=== PATIENT | female | born 1980 | race Caucasian/White ===

== ENCOUNTER 2017-01-29 22:12 | Emergency (ER) | payer OTHER ==
[~2017-01-29] VITALS: Ht 165.1 cm; Wt 74.8 kg
[~2017-01-29 22:12] MED LIST: CEPH500C16 PO; FERR324T20 PO; IBUP-974 PO
[2017-01-29 23:05] VITALS: BP 135/88
--- NOTE | 2017-01-29 23:49 | NUR ---
PATIENT TO OF 1
--- NOTE | 2017-01-29 23:56 | NUR ---
37Y/F PATIENT PRESENTS TO ED WITH C/O TOOTHACHE . PT STATES STATES HAVING TOOTHACHE X 2 WKS, WENT TO SEE AT ED, GOT ATB, THEN WENT TO SEE DENTIST YESTERDAY, HAVE APPOINTMENT ON 02/05/17, TODAY PAIN INCREASES . DENIES N/V/D, RT. FACE SWELLING; SKIN IS PINK/WARM/DRY; AAOX4 WITH EVEN AND STEADY GAIT; LUNGS CLEAR BL; HR EVEN AND REGULAR; PT DENIES ANY FEVER, CP, SOB, OR COUGH AT THIS TIME; PATIENT STATES PAIN OF 10/10 AT THIS TIME; VSS; ER MD MADE AWARE OF PT STATUS.
--- NOTE | 2017-01-29 23:58 | NUR ---
Patient being evaluated by physician.
[2017-01-30] MEDS ORDERED: LIDOCAINE/EPI 1% 1:100000 20 ML VIAL INJ ONE (00:15)
--- NOTE | 2017-01-30 00:40 | NUR ---
DR. LU PERFORMS I AND D AT BEDSIDE, PT. TOLERATES WELL.
[2017-01-30 01:05] VITALS: BP 128/79
--- NOTE | 2017-01-30 01:05 | NUR ---
Patient discharged with v/s stable. Written and verbal after care instructions given and explained. Patient alert, oriented and verbalized understanding of instructions. Ambulatory with steady gait. All questions addressed prior to discharge. ID band removed. Patient advised to follow up with PMD. Rx of NORCO, CLINDAMYCIN AND NAPROSYN given. Patient educated on indication of medication including possible reaction and side effects. Opportunity to ask questions provided and answered.
== END 2017-01-30 01:05 | disposition home or self-care (01) ==
LOC: MED 22:12
DX: K04.7 Periapical abscess without sinus (principal)
CPT/HCPCS: 41800; 99284; J2001; 99283

== ENCOUNTER 2018-09-19 14:24 | Inpatient (IN) | payer OTHER ==
[~2018-09-19] VITALS: Ht 165.1 cm; Wt 81.6 kg
[2018-09-19 14:45] VITALS: BP 118/81
--- NOTE | 2018-09-19 14:52 | NUR ---
PATIENT AMB. TO BED #11 WITH NURSE
[2018-09-19] MEDS ORDERED: NACL 0.9% 1,000 ML IV ONE (15:10)
[2018-09-19 15:34] LABS: BASOPHILS % (AUTO) 0.5 % (0.0-2.0); EOSINOPHILS # (AUTO) 0.1 K/uL (0-0.4); EOSINOPHILS % (AUTO) 2.4 % (0.0-4.0); HEMATOCRIT 29.5 % (36-48); HEMOGLOBIN 9.1 g/dL (12.0-16.0); LYMPHOCYTES % (AUTO) 19.3 % (20.5-51.1); MEAN CORPUSCULAR HEMOGLOBIN 22 pg (27-31); MEAN CORPUSCULAR HGB CONC 31 g/dL (33-37); MEAN CORPUSCULAR VOLUME 71.5 fL (80-94); MONOCYTES # (AUTO) 0.4 K/uL (0.8-1.0); MONOCYTES % (AUTO) 7.9 % (1.7-9.3); NEUTROPHILS # (AUTO) 3.8 K/uL (1.8-7.7); NEUTROPHILS % (AUTO) 69.9 % (42.2-75.2); PLATELET COUNT (AUTO) 209 K/uL (140-450); RED BLOOD CELL COUNT(AUTO) 4.13 MIL/uL (4.20-5.40); RED CELL DISTRIBUTION WIDTH 16.9 % (11.6-13.7); WHITE BLOOD COUNT (AUTO) 5.4 K/uL (4.8-10.8)
--- NOTE | 2018-09-19 15:39 | NUR ---
PT C/O BLOOD CLOTS AND VAGINAL BLEEDING POST 15 DAYS AT A [facility] [place] AT 13 WKS. GEST. AT THAT TIME. DENIES ABD. PAIN/CRAMPING. NOW PATIENT 15 WKS. GEST. . PER PATIENT BLEEDING WITH CLOTS. DENIES HX, DENIES PAIN.
[2018-09-19 15:41] LABS: ANION GAP 11.1 (8-16); CARBON DIOXIDE 27.9 mmol/L (21-32); CREATININE 0.7 mg/dL (0.6-1.3)
[2018-09-19 15:46] LABS: ALBUMIN 3.4 g/dL (3.4-5.0); TOTAL BILIRUBIN 0.2 mg/dL (0.0-1.0)
[2018-09-19 15:51] LABS: PROTHROMBIN TIME 10.3 secs (10.8-13.4)
--- NOTE | 2018-09-19 18:11 | NUR ---
PT, REPORTS LIGHT BLEEDING AND NO CLOTS.
--- NOTE | 2018-09-19 18:15 | NUR ---
PT TAKEN TO US VIA WHEELCHAIR
--- NOTE | 2018-09-19 18:36 | NUR ---
Jose johnston in [facility] - 09/19/18 at 1842 by [facility] PT RETURNED FROM US
--- NOTE | 2018-09-19 18:42 | NUR ---
PT RETURNED FROM US
--- NOTE | 2018-09-19 19:33 | NUR ---
PT LAYING IN BED, VSS, WILL CONTINUE TO MONITOR.
--- NOTE | 2018-09-19 21:19 | NUR ---
LAB AT BEDSIDE
--- NOTE | 2018-09-19 21:26 | NUR ---
PT LAYING IN BED, VSS, WILL CONTINUE TO MONITOR.
[2018-09-19] MEDS ORDERED: NACL 0.9% 1,000 ML IV SCH (23:29)
[2018-09-19] MEDS ORDERED: ONDANSETRON 4 MG/2 ML VIAL IM/IVP PRN (23:30)
[2018-09-19] MEDS ORDERED: MORPHINE SULFATE 2 MG/ML SYR IVP PRN (23:30)
[2018-09-19] MEDS ORDERED: DOCUSATE SODIUM 100 MG GELCAP PO PRN (23:30)
[2018-09-19] MEDS ORDERED: HYDROcodone/APAP 5/325 MG 1 TAB TAB PO PRN (23:30)
[2018-09-19] MEDS ORDERED: ACETAMINOPHEN 325 MG TAB PO PRN (23:30)
--- NOTE | 2018-09-20 | NUR ---
PT LAYING IN BED , VSS, BLEEDING CONTROLLED, NO CLOT PRODUCTION NOTED IN PAD.
[2018-09-20 00:03] VITALS: BP 114/63
--- NOTE | 2018-09-20 00:03 | NUR ---
RECEIVED REPORT FROM ER NURSE AT BEDSIDE FOR CONTINUITY OF CARE. PT AAOX4. PT IV NOTED RIGHT HAND 22G SALINE LOCK. NO SOB NO S/S OF DISTRESS ON RA. PT ORIENTED TO ROOM. PT AMBULATORY. BED LOWERED CALL LIGHT WITHIN REACH. WILL CONTINUE TO MONITOR.
--- NOTE | 2018-09-20 00:10 | NUR ---
Patient will be admitted to care of DR RAPP. Admited to [facility]. Will go to [id number]. Belongings list completed. Report to ERROL KENYON.
[2018-09-20] MEDS ORDERED: cefTRIAXone 1,000 MG VIAL ONE (01:00)
[2018-09-20 02:09] LABS: CHOL/HDL RATIO 1.8 (1-4.5); PHOSPHORUS 3.3 mg/dL (2.5-4.9); THYROID STIMULATING HORMONE 0.96 uIU/mL (0.34-3.74)
--- NOTE | 2018-09-20 04:12 | NUR ---
PT SLEEPING. NO SOB NO S/S OF DISTRESS ON RA. WILL CONTINUE TO MONITOR.
--- NOTE | 2018-09-20 07:05 | NUR ---
ENDORSED REPORT TO DAYSHIFT NURSE AT BEDSIDE FOR CONTINUITY OF CARE.
--- NOTE | 2018-09-20 07:06 | NUR ---
RECEIVED REPORT FROM PM NURSE AT BEDSIDE. PT LYING ON HER BED COMFORTABLY. PT HAS RT FA 22 G IV ACCESS, NS INFUSING AT 60 ML/HR. PT AWAKE WHILE RECORDING VS, INFORMED HER THAT URINE SAMPLE NEEDS TO BE COLLECTED, PLACED CUP AT PTS BEDSIDE. PT IS A0X4, DUE FOR [facility] CONSULT. DR RAPP MADE ROUND ALREADY. DENIES PAIN. INFORMED HER TO USE CALL LIGHT FOR ANY HELP. WILL CONTINUE TO MONITOR PT.
[2018-09-20 08:03] VITALS: BP 109/69
[2018-09-20] MEDS ORDERED: AZITHROMYCIN 250 MG TAB PO SCH (08:30)
[2018-09-20] MEDS ORDERED: ASCORBIC ACID 500 MG TAB PO SCH (09:00)
[2018-09-20] MEDS ORDERED: medroxyPROGESTERone 10 MG TAB PO SCH (09:00)
[2018-09-20] MEDS ORDERED: FERROUS SULFATE 325 MG TABEC PO SCH (09:00)
[2018-09-20] MEDS ORDERED: FERROUS SULFATE 324 MG PO SCH (09:00)
[2018-09-20 09:02] LABS: BASOPHILS % (AUTO) 0.3 % (0.0-2.0); EOSINOPHILS # (AUTO) 0.1 K/uL (0-0.4); EOSINOPHILS % (AUTO) 2.9 % (0.0-4.0); HEMATOCRIT 29.2 % (36-48); HEMOGLOBIN 8.9 g/dL (12.0-16.0); LYMPHOCYTES # (AUTO) 0.8 K/uL (2.5-16.5); LYMPHOCYTES % (AUTO) 18.8 % (20.5-51.1); MEAN CORPUSCULAR HEMOGLOBIN 22 pg (27-31); MEAN CORPUSCULAR HGB CONC 30 g/dL (33-37); MEAN CORPUSCULAR VOLUME 72.9 fL (80-94); MONOCYTES # (AUTO) 0.4 K/uL (0.8-1.0); MONOCYTES % (AUTO) 8.5 % (1.7-9.3); NEUTROPHILS # (AUTO) 3.1 K/uL (1.8-7.7); NEUTROPHILS % (AUTO) 69.5 % (42.2-75.2); PLATELET COUNT (AUTO) 204 K/uL (140-450); RED BLOOD CELL COUNT(AUTO) 4.01 MIL/uL (4.20-5.40); WHITE BLOOD COUNT (AUTO) 4.4 K/uL (4.8-10.8)
[2018-09-20 09:25] LABS: ANION GAP 10.6 (8-16); CARBON DIOXIDE 25.5 mmol/L (21-32); CREATININE 0.6 mg/dL (0.6-1.3); POTASSIUM 4.1 mmol/L (3.5-5.1)
--- NOTE | 2018-09-20 09:30 | NUR ---
ADMINISTERED MEDS TO PT. TOLERATED WELL. PT ON NPO AT THIS TIME. INFORMED PT THAT URINE NEEDS TO BE COLLECTED, EXPLAINED HER TO URINATE FIRST AND THE WAIT FIR A WHILE AND PEE IN CUP. VERBALIZED UNDERSTANDING. PT STATES THAT SHE I SNOT BLEEDING HEAVILY AT THIS TIME. NO SIGN OF DISTRESS NOTED. INFORMED HER TO USE CALL LIGHT FOR ANY HELP. WILL CONTINUE TO MONITOR PT.
--- NOTE | 2018-09-20 10:20 | NUR ---
PATIENT HAS BEEN SCREENED AND CATEGORIZED LOW NUTRITION RISK. PATIENT WILL BE SEEN WITHIN 7 DAYS OF ADMISSION. 09/26/[address]
--- NOTE | 2018-09-20 10:52 | NUR ---
CHECKED ON PT. SITTING ON HER BED, COMFORTABLE AND CALM. PT DIET HAS BEEN CHANGED TO REGULAR. OFFERED HER JUICE AND SOME CRACKERS. CALLED [employer] TO SEND SOME SANDWICH FOR PT . LEFT VOICE MESSAGE. WILL CONTINUE TO MONITOR PT.
[2018-09-20] MEDS ORDERED: INFLUENZA VIRUS VACCINE QUAD 0.5 ML SYR IMVAC PRN (11:40)
--- NOTE | 2018-09-20 12:00 | NUR ---
CHECKED ON PT. SLEEPING AT THIS TIME. PT DISCHARGED BY MD. EXPLAINED THE DISCHARGE INSTRUCTION TO PT. PT STATES THAT HER RIDE WILL BE AT HOSPITAL AROUND 1500. INFORMED HER THAT WILL WORK ON HER DISCHARGE PAPER. VERBALISED UNDERSTANDING. WILL CONTINUE TO MONITOR PT.
[2018-09-20] MEDS ORDERED: AZIT250T11 PO (12:31)
[2018-09-20] MEDS ORDERED: MEDR10TA33 PO (12:31)
[2018-09-20] MEDS ORDERED: VITC500 PO (12:31)
[2018-09-20] MEDS ORDERED: FER325 PO (12:32)
--- NOTE | 2018-09-20 15:00 | NUR ---
CHECKED ON PT. PROVIDED DC INSTRUCTION INFORMED HER TO CONTINUE WITH ABX ORDERED BY MD ORDERED BY MD FOR 4 MORE DAYS. AND TO TAKE OTHER MEDS ORDERED. VERBALIZED UNDERSTANDING. INFORMED PT TO CALL THE DR. PRATER OFFICE BEFORE GOING TO CLINIC ORDERED ON Sep AT 1400. VERBALIZED UNDERSTANDING. PT WAITING FOR HER RIDE.
[2018-09-20 16:00] VITALS: BP 109/65
--- NOTE | 2018-09-20 17:00 | NUR ---
PT DISCHARGED . WENT HOME WITH FAMILY. ALL DC INSTRUCTION AND PRESCRIPTION PROVIDED TO PT. STATES HAS NO QUESTION AT THIS TIME. INFORMED HER TO GO TO NEAR ER IF BLEEDING IS UNCONTROLLED , TO GET MEDICAL TREATMENT. VERBALISED UNDERSTANDING. PT WENT HOME WITH ALL HER BELONGINGS AND DC PACKET.
[2018-09-21 08:19] LABS: FOLIC ACID 12.3 ng/mL (>3.0)
[2018-09-21] MEDS ORDERED: AZITHROMYCIN 250 MG TAB PO SCH (09:00)
== END 2018-09-20 17:00 | disposition home or self-care (01) | DRG 564 ==
LOC: MED 14:24 → MTU 23:41
PROVIDERS: ADMIT General Practice; ATTEND General Practice
DX: O03.1 Delayed or excessive hemorrhage following incomplete spontaneous abortion (principal); D50.9 Iron deficiency anemia, unspecified
CPT/HCPCS: 36415; 76856; 80048; 80053; 82607; 82728; 82746; 83036; 83540; 83690; 83735; 84100; 84134; 84443; 84702; 85025; 85045; 85610; 85730; 86900; 86901; 87081; 96360; 99285; J0696; J7030; J7060